=== PATIENT | male | born 1980 | race Two or more races ===

== ENCOUNTER 2020-08-19 08:12 | Day surgery (SDC) | payer OTHER ==
[~2020-08-19] VITALS: Ht 180.3 cm; Wt 97.5 kg
[2020-08-19] VITALS (11 sets, daily range): BP systolic 106–144; BP diastolic 61–101
--- NOTE | 2020-08-19 07:43 | Pre-Procedure Note/Attestation ---
Pre-Procedure Note/Attestation Complete Prior to Procedure Procedure Narrative: left shoulder diagnostic arthroscopym, sad Indications for Procedure Pre-Operative Diagnosis: left shoulder calcific tendenitis, possible slap tear, impingement Attestation I attest that I discussed the nature of the procedure; its benefits; risks and complications; and alternatives (and the risks and benefits of such alternatives), prior to the procedure, with the patient (or the patient's legal claims service representative). I attest that, if there was a reasonable possibility of needing a blood transfusion, the patient (or the patient's legal claims service representative) was given the [facility] standardized written summary, pursuant to the Yoandy Renita Blood Safety Act ([place] Health and Safety Code # 1645, as amended). I attest that I re-evaluated the patient just prior to the surgery and that there has been no change in the patient's H&P, except as documented below: Binu Patel MD Aug 19, 2020 07:43
--- NOTE | 2020-08-19 07:44 | Operative Note - PDOC ---
Operative Note Operative Note Pre-op Diagnosis: left shoulder calcific tendenitis, possible slap tear, impingement Procedure: see op report Post-op Diagnosis: same as pre-op plus Operative Findings: consistent w/pre-op dx studies Specimen: none Complications: none Condition: stable Estimated Blood Loss: none Drains: none Implant(s) used?: No Binu Patel MD Aug 19, 2020 07:44
[~2020-08-19 08:12] MED LIST: BACLOFEN10 MG ORAL; D5 1/2NS 1,000 ML IV SCH; HYDROcodone/Acetamin 5/325 tab ORAL PRN; HYDROmorphone 1mg/ml Carpuject SUBQ PRN; NORCO 10-325 T1 EACH ORAL; Tylenol #3 tab (300mg/30mg) ORAL PRN; ceFAZolin 1gm IVPB IVPB ONE; celeBREX 200mg Cap **SURGERY PATIENTS ONLY ORAL ONE; gabapentin PO; oxyCONTIN 20mg tab ORAL ONE
[2020-08-19] MEDS ORDERED: oxyCONTIN 20mg tab ORAL ONE (08:31)
[2020-08-19] MEDS ORDERED: celeBREX 200mg Cap **SURGERY PATIENTS ONLY ORAL ONE (08:31)
[2020-08-19] MEDS ORDERED: ALEVE220 M2 PO (08:41)
[2020-08-19] MEDS ORDERED: TYLENOL EXTRA500 MG ORAL (08:41)
--- NOTE | 2020-08-19 10:04 | Anethesia Preoperative Eval ---
Anesthesia Pre-op PMH/ROS General Date of Evaluation: Aug 19, 2020 Anesthesiologist: Ahsan ASA Score: ASA 2 Mallampati Score Class I : Soft palate, uvula, fauces, pillars visible Class II: Soft palate, uvula, fauces visible Class III: Soft palate, base of uvula visible Class IV: Only hard plate visible Mallampati Classification: Class III Surgeon: Jorge Diagnosis: Left shoulder impingement Surgical Procedure: Left shoulder arthrosocpy Anesthesia History: none Family History: no anesthesia problems Allergies: Coded Allergies: GABAPENTIN (Verified Allergy, Severe, PALPITATIONS, 08/19/20) CONSTIPATION LATEX (Verified Allergy, Intermediate, 08/18/20) LEVETIRACETAM (Verified Allergy, Intermediate, swelling; rash, 08/18/20) NICKEL (Verified Allergy, Intermediate, nerve pain; swelling, 08/18/20) PHENYTOIN (Verified Allergy, Intermediate, swelling; rash, 08/18/20) Medications: see eMAR Patient NPO?: Yes NPO Date: Aug 19, 2020 NPO Time: 00:00 Past Medical History Cardiovascular: Denies: HTN, CAD, CA, valve dz, arrhythmia, other Pulmonary: Denies: asthma, COPD, ROD, other Gastrointestinal/Genitourinary: Denies: GERD, CRI, ESRD, other Neurologic/Psychiatric: Denies: dementia, CVA, depression/anxiety, TIA, other Endocrine: Denies: DM, hypothyroidism, steroids, other HEENT: Denies: cataract (L), cataract (R), glaucoma, FLANDREAU (L), FLANDREAU (R), other Hematology/Immune: Denies: anemia, DVT, bleeding disorder, other Musculoskeletal/Integumentary: Reports: OA; Denies: RA, DJD, DDD, edema, other Other: other - overweight PSxH Narrative: Right knee arthroscopy, lumbar discectomy, partial thyroidectomy Anesthesia Pre-op Phys. Exam Physician Exam Last Vital Signs Date Time Temp Pulse Resp B/P (MAP) Pulse Ox O2 Delivery O2 Flow Rate FiO2 08/19/20 08:46 97.7 74 18 126/79 96 Room Air Constitutional: NAD Cardiovascular: RRR Respiratory: CTA Airway Exam Mallampati Score: Class III MO: full ROM: full Anesthesia Pre-op A/P Labs see chart Studies Pre-op Studies: EKG - sr Risk Assessment & Plan Assessment: ASA iI Plan: GA with left intersclene nerve block Status Change Before Surgery: No Pre-Antibiotics Drug: Ancef 2g Given Within 1 Hr of Incision: Yes Luz Foreman MD Aug 19, 2020 10:04
[2020-08-19] MEDS ORDERED: Lidocaine 1% MPF 10mg/ml 5ml ONE (10:08)
[2020-08-19] MEDS ORDERED: Ropivacaine 5mg/ml Vial 20ml INJ ONE (10:10)
[2020-08-19] MEDS ORDERED: Metoclopramide 10mg/2ml Inj IVP PRN (10:15)
[2020-08-19] MEDS ORDERED: Midazolam 2mg/2ml Inj IVP PRN (10:15)
[2020-08-19] MEDS ORDERED: fentaNYL 100 mcg/2 mL IV PRN (10:15)
[2020-08-19] MEDS ORDERED: LR 1000ml 1,000 ML IVLG SCH (10:15)
[2020-08-19] MEDS ORDERED: Ketorolac 30mg Inj IV PRN (10:15)
[2020-08-19] MEDS ORDERED: LORazepam Inj 2mg/ml 1ml IV PRN (10:15)
[2020-08-19] MEDS ORDERED: Labetalol 5mg/ml 20ml vial IV PRN (10:15)
[2020-08-19] MEDS ORDERED: Hydromorphone 0.5mg/0.5ml inj IVP PRN (10:15)
[2020-08-19] MEDS ORDERED: DiphenhydrAMINE 50mg/ml Inj IVP PRN (10:15)
[2020-08-19] MEDS ORDERED: Duramorph PF 5mg/10ml amp ONE (10:34)
[2020-08-19] MEDS ORDERED: Ketorolac 30mg Inj ONE ×2 (10:34→11:25)
[2020-08-19] MEDS ORDERED: Kenalog-40 1ml Vial ONE (10:34)
[2020-08-19] MEDS ORDERED: EPINEPHrine 1mg/1ml Amp ONE (10:34)
[2020-08-19] MEDS ORDERED: Bupivacaine 0.25% Inj 30ml INJ ONE (10:34)
[2020-08-19] MEDS ORDERED: NS Irrig 2000ml IRRIG ONE ×3 (11:00→11:50)
[2020-08-19] MEDS ORDERED: LR 1000ml ONE (11:00)
[2020-08-19] MEDS ORDERED: Rocuronium Bromide 50mg/5ml Inj IV ONE (11:00)
[2020-08-19] MEDS ORDERED: Sterile Water Irrig 1000ml IRRIG ONE (11:00)
[2020-08-19] MEDS ORDERED: EPINEPHrine 1mg/1ml Amp IRRIG ONE (11:50)
--- NOTE | 2020-08-19 12:18 | Immediate Post-Op Evaluation ---
Immediate Post-Op Evalulation Immediate Post-Op Evalulation Procedure: Left shoulder arthroscopy Date of Evaluation: Aug 19, 2020 Time of Evaluation: 12:18 IV Fluids: 600 Blood Products: 0 Estimated Blood Loss: min Urinary Output: 0 Blood Pressure Systolic: 126 Blood Pressure Diastolic: 79 Pulse Rate: 74 Respiratory Rate: 16 O2 Sat by Pulse Oximetry: 96 Temperature (Fahrenheit): 97.6 Pain Score (1-10): 0 Nausea: No Vomiting: No Complications 0 Patient Status: awake, reacts, patent, none Hydration Status: adequate Drug: Ancef 2g Given Within 1 Hr of Incision: Yes Luz Foreman MD Aug 19, 2020 12:18
--- NOTE | 2020-08-19 12:19 | 48 Hour Post Anesthesia Eval ---
Post Anesthesia Evaluation Procedure: Left shoulder arthroscopy Date of Evaluation: Aug 19, 2020 Airway: patent Nausea: No Vomiting: No Pain Intensity: 0 Hydration Status: adequate Cardiopulmonary Status: at baseline Mental Status/LOC: patient returned to baseline Post-Anesthesia Complications: 0 Follow-up care needed: ready to discharge Luz Foreman MD Aug 19, 2020 12:19
--- NOTE | 2020-08-19 18:44 | Operative Note - Dictated ---
DATE OF OPERATION: 08/19/2020 PREOPERATIVE DIAGNOSES: 1. Left shoulder biceps tendinosis. 2. Left shoulder impingement syndrome. 3. Left shoulder SLAP tear. POSTOPERATIVE DIAGNOSES: 1. Left shoulder biceps tendinosis. 2. Left shoulder impingement syndrome. 3. Left shoulder SLAP tear. PROCEDURES: 1. Left shoulder diagnostic arthroscopy and intra-articular debridement. 2. Left shoulder subacromial decompression, bursectomy. 3. Decompression of calcium deposit. SURGEON: Binu Patel M.D. ANESTHESIA: Interscalene with general. INDICATION FOR PROCEDURE: The patient is a pleasant gentleman with some progressive left shoulder pain, failed conservative treatment and elected to undergo left shoulder arthroscopy and possible repair versus debridement of the SLAP tear with concurrent subacromial decompression, bursectomy with possible removing of calcium deposit. Risks, limitations, expectations, and complications of procedure were discussed in detail. All questions addressed. DESCRIPTION OF PROCEDURE: After informed consent was obtained, the patient was taken to the operating room. The patient was placed under interscalene general anesthesia. Left shoulder was prepped and draped in the sterile manner. Time-out was performed. Posterolateral stab incision was then made. Trocar was introduced in the glenohumeral joint. There was no chondral damage. Anterior labrum was intact. Superior labrum had some fraying, but no gross detachment. Biceps tendon was intact. Articular surface of rotator cuff was intact. Camera was positioned in the subacromial space. There was posteriorly. Acromion was identified. Acromioplasty was started from lateral to medial and completed from posterior to anterior. Once that was done, further bursectomy on the posterior aspect of the shoulder was performed. Once that was completed, camera was placed supraspinatus to see if the area where there was calcium deposit could be palpated, which was somewhat difficult. Three viewing attempts were performed after which no further attempts were performed. At this point, the instruments were removed. Portal sites were closed with 3-0 Monocryl sutures. Steri-Strips and a sterile dressing was applied. EBL: None. COMPLICATIONS: None. SPECIMENS: None. IMPLANTS: None. Binu Patel M.D. DR: INOCENTE JOB#: [id number] CC:
== END 2020-08-19 14:15 | disposition home or self-care (01) ==
LOC: SUR 08:12
DX: M75.22 Bicipital tendinitis, left shoulder (principal); M75.42 Impingement syndrome of left shoulder; S43.432A Superior glenoid labrum lesion of left shoulder, initial encounter; E66.3 Overweight; Z68.30 Body mass index [BMI] 30.0-30.9, adult; X58.XXXA Exposure to other specified factors, initial encounter; Y92.9 Unspecified place or not applicable; Z88.8 Allergy status to other drugs, medicaments and biological substances; E89.0 Postprocedural hypothyroidism
CPT/HCPCS: 29823; 29999; 94003; J0171; J0690; J1100; J1885; J2250; J2405; J2704; J2795; J3010; J3490; J7120; U0002; 94150